=== PATIENT | male | born 1930 | race Caucasian/White ===

== ENCOUNTER 2016-04-29 16:11 | Outpatient (CLI) | payer MEDICARE, BC ==
--- NOTE | 2016-04-29 17:02 | RAD ---
TWO VIEW CHEST 04/29/16 COMPARISON: 03/06/16 INDICATION: Hemoptysis. FINDINGS: Bilateral pleural effusions, left greater than right are present. There is patchy opacifications in the mid to lower right lung zone as well as opacification adjacent the moderate sized left effusion. Tunneled left sided vascular catheter is present. IMPRESSION: Probable findings of decompensated CHF with bilateral pleural fluid, left greater than right. Adjace nt opacities may relate to atelectasis and/or pneumonia. Followup to resolution recommended. POS: NAILA
== END 2016-04-29 16:12 | disposition home or self-care (01) ==
LOC: NAV RAD 16:11
PROVIDERS: ATTEND Family Medicine
DX: R04.2 Hemoptysis (principal); J90 Pleural effusion, not elsewhere classified
CPT/HCPCS: 71020